=== PATIENT | male | born 1965 | race Caucasian/White ===

== ENCOUNTER 2025-01-10 00:28 | Emergency (ER) | payer OTHER, SELFPAY ==
[2025-01-10 00:39] VITALS: BP 116/79; PULSE 70; RESP 16; TEMP 36.6; O2SAT 98; BMI 30.3
[2025-01-10 00:52] LABS: Appearance Urine Clear (Clear); Bilirubin Urine Negative (Negative); Blood Urine 1+ (Negative); Color Urine Yellow (Yellow); Glucose Urine Negative (Negative); Ketones Urine Negative (Negative); Leukocyte Esterase Urine Negative (Negative); Nitrite Urine Negative (Negative); Protein Urine Negative (Negative); Urobilinogen Urine 0.2 (0.2-1.0)
--- NOTE | 2025-01-10 00:53 | ED_ITS ---
HPI - General Adult General Chief complaint: Flank Pain Stated complaint: Kidney Stone Time Seen by Provider: 01/10/25 00:31 Source: patient Mode of arrival: ambulatory Limitations: no limitations History of Present Illness HPI narrative: 59-year-old male with a prior history of nephrolithiasis and a descending aortic aneurysm presents to the emergency department for evaluation of left flank pain for the past 3 hours. Pain is nonexertional, no injury or trauma. Pain constant, achy, 8/10. Feel similar to prior kidney stones. No fever. Does feel nauseated has some slight burning with urination. No abdominal pain. Last kidney stone was about a year and half ago. Has never required lithotripsy, stent placement or urological intervention otherwise. He has some left over lorazepam which he uses for panic disorder on rare occasion he tried taking those unfortunately did not help his symptoms. He did not try taking any Tylenol or ibuprofen. Has not noted any blood in his urine. No vomiting. Past medical history notable for anxiety disorder. Home medicine is Lexapro 10 mg once daily. He also takes 81 mg aspirin daily preventatively for descending aortic aneurysm, he is not a smoker. No known drug allergies. ROS is notable for the urinary symptoms only, otherwise denies times 12 systems. Related Data Home Medications ?Medication ?Instructions ?Recorded ?Confirmed aspirin 81 mg capsule 81 mg PO DAILY 01/10/25 01/10/25 escitalopram oxalate 10 mg tablet 10 mg PO DAILY 01/10/25 01/10/25 (Lexapro) Previous Rx's ?Medication ?Instructions ?Recorded ketorolac 10 mg tablet 10 mg PO Q6H PRN pain 5 days #20 01/10/25 tabs Allergies Allergy/AdvReac Type Severity Reaction Status Date / Time No Known Drug Allergies Allergy Verified 01/10/25 00:44 [facility] Social History Do you use any of these nicotine containing products: None Non-prescribed substance use: denies use Exam Const: Vital Signs, click to edit/add: Vital Signs - 24 hr 01/10/25 00:39 Temperature 97.9 F Pulse Rate [Pulse Oximeter] 70 Respiratory Rate 16 Blood Pressure [Ri ght Upper Arm] 116/79 Pulse Oximetry 98 Oxygen Delivery Me thod Room Air Documenting provider has reviewed patient's vital signs: yes Other: Mildly diaphoretic and pale. Cooperative. Excellent historian. No signs of impairment. HENMT: Common normals: normocephalic, moist oral mucous membranes and orophar ynx normal Head and scalp: normocephalic Mouth: oral and palatal mucosa normal Eye: Common normals: conjunctivae normal General eye: normal appearance of both eyes Conjunctiva: conjunctiva(e) normal Neck & C-Spine: Common normals: full ROM and no lymphadenopathy Resp: Common normals: normal respiratory effort, no use of accessory muscles and clear to auscultation bilaterally Effort & inspection: able to speak in complete sentences Auscultation: clear to auscultation bilaterally Cardio: Common normals: regular rate, regular rhythm, S1 normal heart sound, S2 normal heart sound and no murmurs Rate: regular rate Rhythm: regular rhythm Heart sounds: S1 normal and S2 normal GI: Common normals: Normal to inspection, nondistended, normoactive bowel sounds present, soft to palpation and no masses Palpation: soft : Other: Left-sided CVA tenderness. Back & Pelvis: Common normals: thoracic and lumbar spine normal to inspection Extremity: Common normals: normal to inspection and normal capillary refill Psych: Attitude: engaged Activity/motor behavior: appropriate eye contact Attention/concentration: attention grossly intact Memory/cognition: memory grossly intact Insight: insight good Judgement: judgment good Skin: Common normals: no rashes or lesions noted General skin exam: no rashes or lesions noted Course Course ED Course: 59-year-old male with left flank pain and history of nephrolithiasis, exam suspicious for repeat nephrolithiasis. Will give 15 of Toradol, 4 of Zofran, urgent urinalysis. Basic labs for intra-abdominal pathology as well mainly due to his history of prior descending aortic aneurysm. Anticipate CT of the abdomen and pelvis without contrast to look for nephrolithiasis. IV has been placed. Await findings. Reevaluation(s) Time of Reevaluation #1: 02:00 Reevaluation #1: 2 mm left UVJ stone found on CT, no signs of hemorrhage or complications with his aneurysm. This is what we expected to fine. We discussed results. He is feeling much better after the Toradol and Zofran. Remainder of labs are quite reassuring except a mildly elevated lactate. He is given 1 L of IV fluids to treat this. There are no other signs of sepsis that would be worrisome. Patient will take 600 mg of ibuprofen at 7:00 a.m.. Counseled on Tylenol 1000 mg every 6 hours. Unfortunately, we are out of Toradol in [facility], hence the recommendation for the ibuprofen. Twenty tablets of Toradol are sent to his pharmacy if needed. Drink lots of fluids, alarm symptoms reviewed warrant ED presentation. He verbalizes understanding and agreement. Vital Signs Vital signs: Initial Vital Signs Temperature 97.9 F 01/10/25 00:39 Temperature Source Temporal Artery Scan 01/10/25 00:39 Pulse Rate 70 01/10/25 00:39 Respiratory Rate 16 01/10/25 00:39 Blood Pressure 116/79 01/10/25 00:39 Blood Pressure Mean 91 01/10/25 00:39 Blood Pressure Position Sitting 01/10/25 00:39 Pulse Oximetry 98 01/10/25 00:39 Oxygen Delivery Method Room Air 01/10/25 00:39 Vital Signs Temperature 97.9 F 01/10/25 00:39 Pulse Rate 70 01/10/25 00:39 Respiratory Rate 16 01/10/25 00:39 Blood Pressure 116/79 01/10/25 00:39 Pulse Oximetry 98 01/10/25 00:39 Oxygen Delivery Method Room Air 01/10/25 00:39 Temperature 97.9 F 01/10/25 00:39 Pulse Rate 70 01/10/25 00:39 Respiratory Rate 16 01/10/25 00:39 Blood Pressure 116/79 01/10/25 00:39 Pulse Oximetry 98 01/10/25 00:39 Oxygen Delivery Method Room Air 01/10/25 00:39 Medications Administered Medications: Generic Name Dose Route Start Last Admin Trade Name Freq PRN Reason Stop Dose Admin Sodium Chloride 1,000 mls @ 1,000 mls/hr 01/10/25 01:26 01/10/25 02:10 0.9 % Sodium Chloride 1000 Ml IV 01/10/25 02:25 Infused .Q1H ELANA Infusion Discontinued Medications Generic Name Dose Route Start Last Admin Trade Name Freq PRN Reason Stop Dose Admin Ketorolac Tromethamine 15 mg 01/10/25 00:50 01/10/25 00:54 Ketorolac 15 Mg/Ml Inj IVP 01/10/25 00:51 15 mg ONCE ONE Administration Ondansetron HCl 4 mg 01/10/25 00:50 01/10/25 00:54 Ondansetron 2 Mg/Ml Inj IVP 01/10/25 00:51 4 mg ONCE ONE Administration Tamsulosin HCl 0.4 mg 01/10/25 02:01 01/10/25 02:07 Tamsulosin Hcl 0.4 Mg Capsule PO 01/10/25 02:02 0.4 mg ONCE ONE Administration Medical Decision Making Lab Data Lab results reviewed: Yes I reviewed the patient's lab results Lab results narrative: Labs reassuring. No significant leukocytosis, no signs of intra-abdominal pathology. T mildly elevated, no tachycardia or hypotension. Likely secondary to some mild dehydration, IV fluids given. Labs: Lab Results 01/10/25 01/10/25 Range/Units 00:35 01:05 WBC 8.11 (4.50-11.00) K/uL RBC 5.09 (4.30-5.90) m/uL Hgb 15.2 (13.5-17.5) gm/dL Hct 43.8 (37.0-53.0) % MCV 86 (80-100) fL MCH 30 (26-34) pg MCHC 35 (32-36) gm/dL RDW Coeff of Mando 11.8 (11.5-15.5) % Plt Count 226 (140-440) K/uL Neut % (Auto) 62.7 (42.0-72.0) % Lymph % (Auto) 27.1 (20-44) % [place] % (Auto) 7.4 (0.0-11.0) % Eos % (Auto) 1.8 (0.0-7.0) % Baso % (Auto) 0.5 (0.0-3.0) % Neut # (Auto) 5.08 (1.7-7.0) K/uL Lymph # (Auto) 2.20 (0.90-2.90) K/uL [place] # (Auto) 0.60 (0.00-0.90) K/UL Eos # (Auto) 0.15 (0.00-0.50) K/uL Baso # (Auto) 0.04 (0.00-0.30) K/uL Abs Immat Gran (auto) 0.04 (0.00-0.30) K/uL Imm/Tot Granulo (auto) 0.5 % Sodium 141 (135-149) mmol/L Potassium 3.5 L (3.6-5.1) mmol/L Chloride 108 (96-114) mmol/L Carbon Dioxide 20 (20-32) mmol/L Anion Gap 13 (7-15) mEq/L BUN 25 (7-30) mg/dL Creatinine 1.4 (0.5-1.5) mg/dL Estimated Creat Clear 65.79 Estimated GFR 59 ml/min Glucose 146 H (60-115) mg/dL Lactate 3.0 H (0.5-1.9) mmol/L Calcium 9.5 (8.4-10.6) mg/dL Total Bilirubin 0.5 (0.1-1.5) mg/dL AST 33 (12-35) U/L ALT 41 (4-50) U/L Alkaline Phosphatase 88 (40-150) U/L C-Reactive Protein 0.6 (0.5-1.0) mg/dL Total Protein 7.5 (6.0-8.3) g/dL Albumin 4.6 (3.3-5.0) g/dL Lipase 215 (23-300) U/L Urine Color Yellow (Yellow) Urine Appearance Clear (Clear) Urine pH 7.0 (5.0-8.5) Ur Specific [place] 1.020 (1.000-1.030) Urine Protein Negative (Negative) Urine Glucose (UA) Negative (Negative) Urine Ketones Negative (Negative) Urine Blood 1+ A (Negative) Urine Nitrite Negative (Negative) Urine Bilirubin Negative (Negative) Urine Urobilinogen 0.2 (0.2-1.0) Ur Leukocyte Esterase Negative (Negative) Urine RBC 2-5 A (0-2) Urine WBC 0-2 (0-5) Ur Squamous Epith Cells Few (None-Few) Urine Bacteria Few A (None) Imaging Data CT scan - abdomen: Attestation: I have reviewed the pertinent imaging results. My impression: Mild hydronephrosis left kidney, lots of sub mm ?kidney stone glitter? bilateral. Very small left UVJ stone estimated 1-2 mm in size, likely etiology of patient's symptoms. No signs of hemorrhage from previously reported descending aortic aneurysm. Radiologist's impression: IMPRESSION: : There is a calculus in the left distal ureter that measures 2 mm. There is mild upstream hydroureteronephrosis. Please note that all CT scans at this facility use dose modulation, iterative reconstruction, and/or weight-based dosing when appropriate to reduce radiation dose to as low as reasonably achievable. Dictated by Aureliano Rader MD @ 01/10/2025 1:50:26 AM Discharge Plan Discharge Clinical Impression: Ureterolithiasis Patient Disposition: Home w/ Parent or Adult Condition: Improved Instructions: Ureteral Stones (ED) Additional Instructions: As we discussed, you do have a 2 mm stone in the left junction of where the ureter meets the bladder. This is the ?final big turn? on the path of travel for a kidney stone and tends to be the most bothersome symptomatic Margarette. You were given Toradol, and anti-inflammatory pain medicine here in the ED. unfortunately, we are out of this and the vending machine for the weekend. I would like for you to take 600 mg again at about 7:00 a.m.. You may take a 1000 mg of Tylenol up to every 6 hours including if the medicine that I gave you in the ED wears off in the interim. Drink lots of fluids to help push the stone through. It will not likely come out in a definable looking stone but rather fuad material. The sediment should pass over the next 48 hours. You do not need to strain your urine due to the small size. He is return to the emergency department if you have severe weakness, high fever, persistent vomiting or other worrisome symptoms. Activity Level: No Restrictions Discharge Diet: Regular Prescriptions: New ketorolac 10 mg tablet 10 mg PO Q6H PRN (Reason: pain) 5 Days Qty: 20 1RF No Action aspirin 81 mg capsule 81 mg PO DAILY escitalopram oxalate [Lexapro] 10 mg tablet 10 mg PO DAILY Follow Up/Referrals: Provider,Not a Local [Primary Care Provider] - Stand Alone Forms: [employer] Info Instructions
[2025-01-10] MEDS: ONDANSETRON 2 MG/ML inj 4 MG IVP (00:54)
[2025-01-10] MEDS: KETOROLAC 15 MG/ML inj IVP (00:54)
--- OUTSIDE RECORDS SUMMARY | 2025-01-10 01:08 | XMS_ITS | Clinical Summary ---
Author Organization [facility] Address [address] [place] [id number] Care Team Providers Care Sewage Disposal Worker Name Role Phone Chandan Mcguire MD Primary Care Provider Allergies No known active allergies Medications acetaminophen (TYLENOL) 325 mg tabletIndication s:Ascending aortic aneurysm Take 1-2 tablets by mouth every 4 hours if needed (For mild pain or temperature greater than 101 F (38.4 C).). Max acetaminophen dose: 4000mg in 24 hrs. 0 08/08/20 16 Active aspirin (ECOTRIN) 81 mg enteric coated tabletIndication s:S/P ascending aortic aneurysm repair Take 1 tablet by mouth once daily with a meal. 30 tablet 2 08/09/2016 11:00 AM FURNACE AND WASH EQUIPMENT OPERATOR 08/09/20 16 Active MULTIVITAMIN ORAL Take by mouth. Activ e albuterol HFA (PROAIR HFA) 90 mcg/actuation inhalerIndicatio ns:Mild intermittent asthma without complication (HC) Inhale 1-2 Puffs by mouth every 4 hours if needed. 1 Inhaler 10/23/19 18 Active triamcinolone (ARISTOCORT; KENALOG) 0.1 % creamIndications :Pruritus Apply topically to affected area(s) three times daily. 80 g 03/04/20 23 Active albuterol HFA (PRO-AIR; VENTOLIN; PROVENTIL) 90 mcg/actuation inhalerIndicatio ns:Mild intermittent asthma without complication (HC) Inhale 1-2 Puffs by mouth every 4 hours if needed for Shortness Of Breath or Wheezing. 3 Each 3 11/13/19 24 Active escitalopram oxalate (LEXAPRO) 10 mg tabletIndication s:Anxiety TAKE 1 TABLET(10 MG) BY MOUTH AT BEDTIME 90 Tablet 1 04/11/20 24 Active Active Problems Problem Noted Date Diagnosed Date Hyperlipidemia 03/04/2023 Anxiety 12/25/2016 S/P ascending aortic aneurysm repair 08/05/2016 Overview (11/15/2023): 2016- Repair Ascending Aortic Aneurysm with a 30 Vascutek Graft through a ministernotomy Mild intermittent asthma 07/30/2016 Overview (07/30/2016): Exercise induced Bicuspid aortic valve 07/30/2016 Overview (07/30/2016): Echocardiogram (07/12/2016): Normal LV size, normal wall thickness, normal global systolic function with an estimated EF of 55 - 60%. The aortic valve is bicuspid, no stenosis and mild to moderate regurgitation. Mildly enlarged left atrium. The ascending aorta is dilated with a maximal diameter of 5.0 cm. Resolved Problems Problem Noted Date Diagnosed Date Resolved Date Special screening for malign ant neoplasms, colon 03/22/2019 11/15/2023 Ascending aortic aneurysm 07/30/2016 Overview (07/30/2016): CT chest abdomen pelvis (06/24/2016): Ascending thoracic aortic aneurysm measures up to 5 cm in diameter. No other areas of aneurysmal dilatation are identified in the chest, abdomen, or pelvis. No evidence for aortic dissection. Routine health maintenance 06/07/2010 0 12/31/2021 Overview (06/07/2010): Last cpx-09/01 Last lipid 08/04, LDL-116 Immunizations Immunization Administration Dates Next Due Influenza, IIV3 (Age >=3 years) 06/29/2013,07/03 Influenza, IIV4 07/02/2017 Td (Age >=7 Years) 03/29/2004 Tdap 12/09/2013 Family History Medical History Relation Name Comments Cancer Father Bladder Good Health Mother Other Mother lupus Heart Disease Paternal Grandmother a t age 56 of unknown heart issue Psychiatric illness Sister bipolar disorder Relation Name Status Comments Father Mother Paternal Grandmother Sister Social History Tobacco Use Types Packs/Day Years Used Date Smoking Tobacco: Former Cigarettes 0.5 0.5 0 03/31/1985 - 09/29/1985 Smokeless Tobacco: Former Tobacco Cessation:Counseling Given: Not Answered Alcohol Use Standard Drinks/Week Comments Yes 0 (1 standard drink = 0.6 oz pur e alcohol) 2 drinks weekly PHQ-2 Answer Date Recorded PHQ-2 TOTAL SCORE 0 03/04/2023 Social Connections Answer Date Recorded Frequency of Communication with Friends and Fami ly Not on file 03/05/2024 Financial Resource Strain Answer Date R ecorded Difficulty of Paying Living Expenses 3 03/04/2023 Difficulty of Paying Living Expenses Not on file 03/04/2023 Food Insecurity Answer Date Recorded Worried About Running Out of Food in the Last Ye ar 1 03/04/2023 Transportation Needs Answer Date Record ed Lack of Transportation (Medical) 1 03/04/2023 Housing Stability Answer Date Recorded Unable to Pay for Housing in the Last Year 1 03/04/2023 Sex and Gender Information Value Date Recorded Sex Assigned at Not on file Legal Sex Male 7:58 AM FURNACE AND WASH EQUIPMENT OPERATOR Gender Identity Not on file Sexual Orientation Not on file Obstetrics History Last Filed Vital Signs Vital Sign Reading Time Taken Comments Blood Pressure 118/74 11/13/2023 8:22 AM FURNACE AND WASH EQUIPMENT OPERATOR Pulse 64 11/13/2023 8:22 AM FURNACE AND WASH EQUIPMENT OPERATOR Temperature 36.3 C (97.3 F) 03/22/2019 10:01 AM CDT Respiratory Rate 16 03/22/2019 11:4 7 AM CDT Oxygen Saturation 97% 02/21/2022 8:04 AM CDT Inhaled Oxygen Concentration - - Weight 103.6 kg (228 lb 6.4 oz) 11/13/2023 8:22 AM FURNACE AND WASH EQUIPMENT OPERATOR Height 184.2 cm (6' 0.5) 03/04/2023 7:33 AM CDT Body Mass Index 30.55 03/04/2023 7:33 AM CDT Plan of Treatment Health Maintenance Due Date Last Done Comments HIV for age 15-65 1982 Hepatitis C screening for ag e 18-79 1985 Pneumococcal series for age 50+ (1 of 2 - PCV) 1986 Zoster (shingles) series for age 50+ (1 of 2) 2017 Tetanus booster 12/10/2023 12/09/2013, 03/29/2004 BMI (ht and wt on same day) for age 18+ 03/04/2024 03/04/2023, 12/31/2021, 07/30/2016, Additional history exists Depression screening for age 12+ 03/04/2024 03/04/2023, 01/03/2022, 12/31/2021, Additional history exists COVID-19 vaccine series ( season) 2024 Influenza Vaccine (Season Ended) 2025 07/02/2017, 06/29/2013, 07/03/2010 Lipids for age 45-75 03/04/2028 03/04/2023, 02/11/2014, 07/03/2010 Colonoscopy through age 75 03/22/2029 03/22/2019 Tdap Completed 12/09/2013 Medical Devices Implanted Type Area Marketing And Development Coordinator Device Identifier Shelf Expiration Date Model / Serial / Lot Graft Vasc 30mm 30cm Vascutek [employer] [facility] - [id number] Implanted:Qty: 1 on 08/05/2016 by Nader Jett MD at [facility] N/A: Aorta [employer] 02/26/2021 [id number] / [id number] / [id number] Procedures Procedure Name Priority Date/Time Associated Diagnosis Comments LIPID PANEL W REFLEX MEASURED LDL Routine 03/04/2023 8:18 AM CDT Hyperlipidemia, unspecified hyperlipidemia type COLONOSCOPY 03/22/2019 10:22 AM CDT from Last 3 Months or Most Recently Relevant to Health Maintenance Results * LIPID PANEL W REFLEX MEASURED LDL (03/04/2023 8:18 AM CDT) CHOLESTEROL,TOTAL 167 100 - 199 mg/dL 03/04/2023 5:14 PM CDT [facility] Comment: Cholesterol, Total Reference Ranges Desirable <200 mg/dL Borderline 200-239 mg/dL High >=240 mg/dL TRIGLYCERIDES 95 <150 mg/dL 03/04/2023 5:14 PM CDT [facility] HDL CHOLESTEROL 46 >40 mg/dL 5:14 PM CDT [facility] NON-HDL CHOLESTEROL 121 <145 mg/dl 03/04/2023 5:14 PM CDT [facility] CHOL/HDL RATIO 3.63 <4.50 03/04/2023 5:14 PM CDT [facility] LDL CHOLESTEROL 102 <=130 mg/dL 03/04/2023 5:14 PM CDT [facility] VLDL CHOLESTEROL 19 <=30 mg/dL 03/04/2023 5:14 PM CDT [facility] PROVIDER ORDERED STATUS RANDOM 03/04/2023 5:14 PM CDT [facility] Blood BLOOD SPECIMEN / Unknown Venipuncture / Unknown 03/04/2023 8:18 AM CDT 03/04/2023 8:20 AM CDT [facility] Parker Mcguire MD CHEMISTRY Final R esult [facility] [address] [place] [address], * COLONOSCOPY (03/22/2019 10:22 AM CDT) 03/22/2019 10:2 2 AM CDT Narrative Transcriptions Stacy Proter MD - 03/22/2019 11:23 AM CDT Patient Name: Gloria Mejia Procedure Date: 03/22/2019 Gender: Male Date of : 1965 Admit Type: Ambulatory Procedure: Colonoscopy Proceduralist: Stacy Porter MD Referring MD: Jacob Bailon Indications/Pre-Op Diagnosis: Screening for malignant neoplasm in [facility], This is the patient's first colonoscopy Medications: Midazolam 1 mg IV, Fentanyl 100 microgramsIV Procedure Description: The procedure, indications, potential complications, (bleeding, perforation, infection, adverse medication reaction, missed lesionsor polyps) and alternatives available were explained to the patient, who appeared to understand and indicated this. Opportunity for questionswas provided and informed consent obtained. The -[id number] colonoscope was introduced through the anus and advanced to the terminal ileum. The colonoscopy was performed without difficulty. The patient tolerated the procedure well. The quality ofthe bowel preparation was evaluated using the BBPS ([place] BowelPreparation Scale) with scores of: Right Colon = 3 (entire mucosa seen well withno residual staining, small fragments of stool or opaque liquid), Transverse Colon = 3 (entire mucosa seen well with no residualstaining, small fragments of stool or opaque liquid) and Left Colon = 3 (entire mucosa seen well with no residual staining, small fragments of stoolor opaque liquid). The total BBPS score equals 9. The bowel preparation used was GoLYTELY. Scope withdrawal time was 7 minutes. The total duration of the procedure was 8 minutes. The terminal ileum,ileocecal valve, appendiceal orifice, and rectum were photographed. The scopewas advanced using CO2 insufflation. Complications: No immediate complications. Estimated Blood Loss & Specimen: Estimated blood loss: none. Specimen collected: None Findings: The colon (entire examined portion) appeared normal. The terminal ileum appeared normal. The retroflexed view of the distal rectum and anal verge was normaland showed no anal or rectal abnormalities. Impressions/Post-Op Diagnosis: - The entire examined colon is normal. - The examined portion of the ileum was normal. - The distal rectum and anal verge are normal on retroflexion view. - No specimens collected. Recommendation: - Repeat colonoscopy in 10 years. - Patient has a contact number available for emergencies. The signsand symptoms of potential delayed complications were discussed with the patient. Return to normal activities tomorrow. Written discharge instructions were provided to the patient. Moderate Sedation: Moderate (conscious) sedation was administered by the endoscopy nurse and supervised by the endoscopist. The following parameters were monitored: oxygen saturation, heart rate, respiratory rate, adequacyof pulmonary ventilation and reponse to care. Please refer to the patient's medical record flowsheets for moderate sedation details. Stacy Porter MD 03/22/2019 11:22:52 AM This report has been signed electronically. Note Initiated On: 03/22/2019 10:22 AM Stacy Porter MD PROCEDURE ORD Fi nal Result from Last 3 Months or Most Recently Relevant to Health Maintenance Insurance [facility] Advance Directives * Full Code (Latest Code Status on File) Date Activated Date Inactivated Comments 03/22/2019 9:54 AM 03/23/2019 2:34 AM * Full Code Date Activated Date Inactivated Comments 08/05/2016 11:12 AM 08/09/2016 4:50 PM Question Answer Comments Code Status Discussion: Discussed * Full Code Date Activated Date Inactivated Comments 08/05/2016 5:59 AM 08/05/2016 11:12 AM Care Teams Sewage Disposal Worker Relationship Specialty [place] [address] [place] [address] PCP - General Family Practice 12/31/21
[2025-01-10 01:18] LABS: Basophils Absolute Auto 0.04 K/uL (0.00-0.30); Basophils Percent Auto 0.5 % (0.0-3.0); Eosinophils Absolute Auto 0.15 K/uL (0.00-0.50); Eosinophils Percent Auto 1.8 % (0.0-7.0); Hematocrit 43.8 % (37.0-53.0); Hemoglobin* 15.2 gm/dL (13.5-17.5); Immature Granulocytes Abs Auto 0.04 K/uL (0.00-0.30); Immature Granulocytes Pct Auto 0.5 %; Lymphocytes Percent Auto 27.1 % (20-44); Mean Corpuscular HGB Conc 35 gm/dL (32-36); Mean Corpuscular Hemoglobin 30 pg (26-34); Mean Corpuscular Volume 86 fL (80-100); Monocytes Percent Auto 7.4 % (0.0-11.0); Neutrophils Absolute Auto 5.08 K/uL (1.7-7.0); Neutrophils Percent Auto 62.7 % (42.0-72.0); Platelet Count* 226 K/uL (140-440); RDW Coefficient of Variation % 11.8 % (11.5-15.5); Red Blood Count 5.09 m/uL (4.30-5.90); White Blood Count* 8.11 K/uL (4.50-11.00)
[2025-01-10 01:24] LABS: Slide Review Reflex No
--- NOTE | 2025-01-10 01:24 | CRLHL7_ITS ---
For Patients: As a result of the Century Cures Act, medical imaging exams and procedure reports are released immediately into your electronic medical record. You may view this report before your referring provider. If you have questions, please contact your health care provider. INDICATION: LT FLANK PAIN, HX STONES. TECHNIQUE: CT abdomen and pelvis without contrast, stone protocol. COMPARISON: None. FINDINGS: Noncontrast technique limits solid organ evaluation. Kidney/ureters: There is a calculus in the left distal ureter just upstream from the UVJ which measures 2 x 2 x 2 mm. There is mild upstream hydroureteronephrosis with mild perinephric stranding. No other evident renal or ureteral calculi. Liver: Diffuse hepatic hypodensity, compatible with steatosis. Gallbladder: Gallbladder is normal without visualized stones or inflammation. Bile ducts: No biliary dilatation. Spleen: Unremarkable. Pancreas: Unremarkable. Adrenal glands: Unremarkable. GI tract: Mild colonic diverticulosis. Bowel is normal in caliber. Abdominal wall/omentum/peritoneum: No free air or significant free fluid. No mass or inflammation. Small fat containing left inguinal hernia. Lymph nodes: No lymphadenopathy. Pelvis: Unremarkable pelvis. Lower chest: Unremarkable. Bones: No acute or suspicious osseous abnormalities. Grade 1 spondylolisthesis of L5 on S1 secondary to bilateral L5 pars defects. IMPRESSION: : There is a calculus in the left distal ureter that measures 2 mm. There is mild upstream hydroureteronephrosis. Please note that all CT scans at this facility use dose modulation, iterative reconstruction, and/or weight-based dosing when appropriate to reduce radiation dose to as low as reasonably achievable. Dictated by Aureliano Rader MD @ 01/10/2025 1:50:26 AM (Electronically Signed)
[2025-01-10 01:31] LABS: Bacteria Urine Few; Squamous Epithelial Cell Urine Few (None-Few); WBC Urine 0-2 (0-5)
[2025-01-10 01:35] LABS: Albumin* 4.6 g/dL (3.3-5.0); Chloride* 108 mmol/L (96-114); Potassium* 3.5 mmol/L (3.6-5.1); Sodium* 141 mmol/L (135-149)
[2025-01-10 01:37] LABS: Alanine Aminotransferase* 41 U/L (4-50); Aspartate Amino Transferase* 33 U/L (12-35); Blood Urea Nitrogen* 25 mg/dL (7-30); Creatinine* 1.4 mg/dL (0.5-1.5); Est. Creatinine Clearance* 65.79; Estimated Glomerular Filt Rate 59 ml/min
[2025-01-10 01:38] LABS: Alkaline Phosphatase* 88 U/L (40-150); Anion Gap 13 mEq/L (7-15); Bilirubin Total* 0.5 mg/dL (0.1-1.5); Calcium* 9.5 mg/dL (8.4-10.6); Carbon Dioxide* 20 mmol/L (20-32); Glucose* 146 mg/dL (60-115); Lipase* 215 U/L (23-300); Total Protein* 7.5 g/dL (6.0-8.3)
[2025-01-10] MEDS: 0.9 % SODIUM CHLORIDE 1000 ml 1,000 ML IV (01:40)
[2025-01-10 01:41] LABS: C Reactive Protein* 0.6 mg/dL (0.5-1.0)
[2025-01-10] MEDS: TAMSULOSIN HCL 0.4 MG CAPSULE PO (02:07)
== END 2025-01-10 02:29 | disposition home or self-care (01) ==
PROVIDERS: Emergency Provider Family Medicine
DX: N20.1 Calculus of ureter (principal)
CPT/HCPCS: 36415; 74176; 80053; 81001; 83605; 83690; 85025; 86140; 87086; 96374; 96375; 99284; A9270; J1885; J2405; J7030

== ENCOUNTER 2025-04-28 12:59 | Outpatient (CLI) | payer OTHER, SELFPAY | END 2025-04-28 13:00 | disposition home or self-care (01) | LOC: NFLDUCREF 13:00 | DX: R82.90 Unspecified abnormal findings in urine (principal) | CPT/HCPCS: 87086 ==